=== PATIENT | male | born 1975 ===

== ENCOUNTER 2023-12-30 21:39 | Emergency (ER) | payer MEDICAID ==
[2023-12-30] MEDS: diphenhydrAMINE 50 MG Cap PO ONE (22:05)
[2023-12-30] MEDS: predniSONE 20 MG Tab PO ONE (22:13)
[2023-12-30] MEDS ORDERED: diphenhydrAMINE 50 MG Cap PO SCH (22:15)
[2023-12-30] MEDS ORDERED: predniSONE 20 MG Tab PO SCH (22:15)
[2024-01-02] MEDS: predniSONE 20 MG Tab ONE (08:29)
== END 2023-12-30 22:20 | disposition home or self-care (01) ==
LOC: LB.ED 21:39
DX: T63.441A Toxic effect of venom of bees, accidental (unintentional), initial encounter (principal); Z79.899 Other long term (current) drug therapy
CPT/HCPCS: 99282; A9270; J7512